=== PATIENT | female | born 1990 | race African-American/Black ===

== ENCOUNTER 2020-02-14 16:22 | Emergency (ER) | payer OTHER, SELFPAY ==
[2020-02-14 17:11] VITALS: RESP 20
[2020-02-14 17:12] VITALS: BP 110/50; PULSE 86; RESP 20; TEMP 36.4; O2SAT 99; BMI 16.6
[2020-02-14] MEDS: chlordiazePOXIDE HCl 25 MG CAPSULE PO (17:31)
[2020-02-14 17:58] LABS: Glucose Urine UA NEG (NEG); Leukocyte Esterase Urine NEG (NEG); Nitrite Urine NEG (NEG); PH 6.5 (5.0-8.0); Specific Gravity - Urine 1.015 (1.005-1.025); Urine Blood 3+ (NEG); Urine Ketones NEG (NEG); Urine Protein NEG (NEG-TRACE)
--- NOTE | 2020-02-14 17:59 | PC.NURSE ---
Methadone dosage verified in report from [facility]. Medication faxed to pharmacy for medication verification. Pharmacy called.
[2020-02-14 18:00] VITALS: RESP 18
[2020-02-14 18:00] LABS: Appearance Urine CLEAR; Color Urine YELLOW
[2020-02-14 18:01] LABS: UPreg QC Valid YES; Urine Pregnancy NEGATIVE (NEGATIVE)
[2020-02-14 18:09] LABS: RBC Urine 50-75 /HPF (0); Squamous Epithelial Cell Urine 1+ /LPF
[2020-02-14 18:23] LABS: Amphetamine Screen Urine Not Detected (Not Detect); Barbiturates, Urine POSITIVE (Not Detect); Benzodiazepines Screen Urine Not Detected (Not Detect); Cannabinoid Screen Urine POSITIVE (Not Detect); Cocaine Screen Urine POSITIVE (Not Detect); Opiate Screen Urine POSITIVE (Not Detect); Phencyclidine Screen Urine Not Detected (Not Detect)
[2020-02-14 18:28] LABS: MANUAL DIFF FLAG NO
--- NOTE | 2020-02-14 18:28 | PC.NURSE ---
Pt eating dinner, conversing with another pt. Affect even. No concerns reported at this time.
[2020-02-14 18:39] LABS: Basophils Percent Auto 0.5 % (0-2); Eosinophils Absolute Auto 0.1 X10*3/uL (0.0-0.4); Eosinophils Percent Auto 0.8 % (0-4); Hematocrit 43.2 % (37-47); Hemoglobin 14.7 g/dl (12.0-16.0); Imm Gran Abs Auto 0.01 X10*3/uL (0.00-0.03); Imm Gran Pct Auto 0.2 % (0.0-0.4); Lymphocytes Absolute Auto 2.7 X10*3/uL (1.2-4.9); Lymphocytes Percent Auto 43.6 % (20-40); Mean Corpuscular Hemoglobin 28.3 pg (27.0-33.0); Mean Corpuscular Volume 83.1 fL (80-98); Mean Platelet Volume 9.7 fL (9.4-12.3); Monocytes Absolute Auto 0.4 X10*3/uL (0.1-1.2); Monocytes Percent Auto 6.1 % (2-11); Neutrophils Absolute Auto 3.1 X10*3/uL (2.0-8.3); Neutrophils Percent Auto 48.8 % (45-73); Platelet Count 211 X10*3/uL (160-400); Red Cell Distribution Width 14.6 % (11.0-16.0); White Blood Count 6.2 X10*3/uL (4.8-10.8)
[2020-02-14 19:02] LABS: Alanine Aminotransferase 14 U/L (0-31); Alkaline Phosphatase 67 U/L (39-117); Anion Gap 15 (12-20); Aspartate Amino Transferase 21 U/L (5-31); Bilirubin Total 0.3 mg/dL (0.0-1.0); Blood Urea Nitrogen 10 mg/dL (9-16); Calcium 8.9 mg/dL (8.4-10.2); Carbon Dioxide 21 mmol/L (22-29); Chloride 107 mmol/L (96-108); Creatinine Clr Calc Pharmacy 74.3; Estimated Glomerular Filt Rate > 60; Glucose Random 75 mg/dL (60-115); Sodium 139 mmol/L (135-145); Total Protein 7.7 g/dL (6.5-8.0)
[2020-02-14 19:16] LABS: Ethanol < 10 mg/dL
--- NOTE | 2020-02-14 19:23 | PC.NURSE ---
Spoke with JENSEN Goddard at [facility] detox. Pt is not on methadone maintenance. Last dose was 20 MG 1436 today per their COWS/taper detox protocol. Pharmacy notified.
--- NOTE | 2020-02-14 20:02 | MHC.CARE ---
CARE Team calls [facility] crisis in order to confirm that they received referral for crisis evaluation. They have placed patient in the list to be seen and a clinician will be out this evening.
[2020-02-14] MEDS: hydrOXYzine HCL 50 MG TABLET PO (20:37)
[2020-02-14 21:02] VITALS: BP 95/50; PULSE 65; RESP 18; TEMP 36.1; O2SAT 99
--- NOTE | 2020-02-14 21:29 | PC.NURSE ---
Pt asking to speak with provider, Donnie notified. Restless, pacing, standing outside [facility]'s door, redirected away. Waiting to be seen by [facility].
--- NOTE | 2020-02-14 21:39 | PC.NURSE ---
ESTELAN meeting with pt at the bedside
--- NOTE | 2020-02-14 22:22 | PC.NURSE ---
Agitated after speaking with PAYROLL TECHNICIAN. Began to wrap sheet up in attempt to hang self. Security and MHT intervened prior to pt acting. Placed on 1:1 at RN discretion, PREETI Fields and sonny [place] RN notified. Attempted to remove sheets from room. If you take the sheets, I'm just going to do it with my marlee . PAYROLL TECHNICIAN in to speak with pt about medications, able to settle. Pt currently laying in bed, calm. Per [facility], pt is a section 12 bed search.
--- NOTE | 2020-02-14 22:28 | MHC.CARE ---
Per Bud from [facility] crisis, pt will be held on a section 12 for inpt bedsearch.
--- NOTE | 2020-02-14 22:31 | PC.NURSE ---
Seroquel 100 MG PO QHS verified by [facility] pharmacy ([phone]), last filled in August for #30
--- NOTE | 2020-02-14 22:52 | PC.NURSE ---
Pt asleep at current, no signs of distress, respirations even and unlabored.
--- NOTE | 2020-02-14 23:38 | PC.NURSE ---
Report received. PT is sleeping in bed. Breathing is even and unlabored. PT is inpatient bed search.
[2020-02-15 00:30] VITALS: RESP 17
--- NOTE | 2020-02-15 02:06 | ED.PSYCH ---
HPI - Psych General Chief Complaint: Psychiatric Symptoms Stated Complaint: crisis Time Seen by Provider: 02/14/20 17:23 Source: EMS Mode of arrival: EMS Limitations: no limitations History of Present Illness HPI Narrative: Presenting via EMS from [facility] where she has been present for detox for past 2 and half days for alcohol and opiates At the detox center she complaint of suicidal ideation with plan to overdose on illicit drugs MD complaint: suicidal ideation and feels depressed If self harm: admits thoughts of self harm and has plan (Overdose) Related Data Home Medications Medication Instructions Recorded Confirmed Seroquel 100 mg PO BEDTIME 02/14/20 02/14/20 acetaminophen [Tylenol] 650 mg PO Q4H PRN 02/14/20 02/14/20 benzocaine-menthol 1 mich PO Q2H PRN 02/14/20 02/14/20 clonidine HCl 0.1 mg PO TID PRN 02/14/20 02/14/20 guaifenesin [Tussin] 200 mg PO Q4H PRN 02/14/20 02/14/20 hydroxyzine pamoate [Vistaril] 25 mg PO Q6H PRN 02/14/20 02/14/20 loperamide 2 mg PO Q6H PRN 02/14/20 02/14/20 methocarbamol 750 mg PO Q8H PRN 02/14/20 02/14/20 multivitamin with iron-mineral 1 tab PO DAILY 02/14/20 02/14/20 naloxone 4 mg INTRANASAL Q3M PRN 02/14/20 02/14/20 nicotine 1 patch TRANSDERMAL DAILY 02/14/20 02/14/20 ondansetron HCl [Zofran] 4 mg PO Q6H PRN 02/14/20 02/14/20 trazodone 50 mg PO BEDTIME PRN 02/14/20 02/14/20 Allergies Allergy/AdvReac Type Severity Reaction Status Date / Time No Known Allergies Allergy Verified 02/14/20 17:23 Review of Systems Review of Systems: Constitutional: No Weight loss, No Fever, No Chills, No Night Sweats, No Fatigue, No Malaise ENT/Mouth: No Hearing loss, No Ear Pain, No Nasal Congestion, No Sinus Pain, No Hoarseness, No sore throat, No Rhinorrhea, No Swallowing Difficulty Eyes: No Eye Pain, No Swelling, No Redness, No Foreign Body, No Discharge, No Vision Changes Cardiovascular: No Chest Pain, No SOB, No Dyspnea on Exertion, No Orthopnea, No Edema, No Palpitations Respiratory: No Cough, No Sputum, No Wheezing, No Smoke Exposure, No Dyspnea Gastrointestinal: No Nausea, No Vomiting, No Diarrhea, No Constipation, No abdominal Pain, No Hematochezia, No Melena Genitourinary: no irregular bleeding, No Dysuria, No Urinary Frequency, No Hematuria, No Urinary Incontinence, No Urgency, No Flank Pain Musculoskeletal: No joint pain, No Myalgias, No Joint Swelling Skin: No Skin Lesions, No rash Neuro: No Weakness, No Numbness, No Paresthesias, No Loss of Consciousness, No Dizziness, No Headache Psych: as noted in HPI Heme/Lymph: No Bruising, No Bleeding,No Lymphadenopathy Endocrine: No Polyuria, No Polydipsia, No Temperature Intolerance Yes all other systems are reviewed and are negative [facility] Past Medical History Medical History (Updated 02/15/20 @ 02:08 by Donnie Terry NP) No known health problems Social History Social History Smoking Status: Unknown if ever smoked Substance Use Type: Crack/Cocaine and Heroin Substance Use Frequency: Chronic Longstanding Advance Directives: No Advance Directives Information Provided: No Physical Exam Vital Signs: Vital Signs: Last Vital Signs Temp 97 F 02/14/20 21:02 Pulse 65 02/14/20 21:02 Resp 17 02/15/20 00:30 BP 95/50 L 02/14/20 21:02 Pulse Ox 99 02/14/20 21:02 Body Mass Index 16.6 Reviewed Const: General: cooperative and healthy appearing; No acute distress or intoxicated appearing Nutritional Appearance: average body habitus Orientation/consciousness: patient oriented x3 HENMT: Head: Yes normal to inspection Ears: hearing grossly normal bilaterally Eyes: General: appearance normal, both eyes and all related structures Visual Marshall: normal visual marshall by confrontation Neck: Neck: Yes normal visual inspection, No positive Brudzinski's sign, No positive Kernig's sign and No tender Thyroid: Thyroid normal Chest: Chest palpation & inspection: normal inspection of the chest Resp: Effort & Inspection: normal respiratory effort Auscultation: clear to auscultation bilaterally Cardio: Jugular venous distension: no JVD Rhythm: regular rhythm Heart sounds: S1 normal heart sound present and S2 normal heart sound present GI: Inspection: Yes normal to inspection Percussion: Yes normal to percussion Auscultation: normal bowel sounds : General: Yes no CVA tenderness Back/Spine/Pelvis: Back: no CVA tenderness Skin: General skin exam: no rashes or lesions noted Neuro: General: patient oriented x3 Extrem: General: Yes normal to inspection Course Course Course Narrative: Interview 30-year-old female presenting with complaint of suicidal ideation from detox center. Will need medical clearance for crisis evaluation. Consultations Consultation #1: [id number] Evaluate by the crisis team recommendation for inpatient level care. Section 12 completed and signed by me. Bed search initiated. MDM - Psych Restraints Face to Face Assessment: Face to Face Assessment: Current Situation: After assessment of the patient, a review of the pertinent medical record and a discussion with nursing staff, I feel the patient requires a restrain intervention. Reaction To: [] Medical Condition: [] Behavioral State: [] Continued Need: [] Lab Data Result diagrams: 02/14/20 18:17 02/14/20 18:17 Labs: Lab Results 02/14/20 02/14/20 02/14/20 Range/Units 17:46 17:46 18:17 WBC 6.2 (4.8-10.8) X10*3/uL RBC 5.20 (4.20-5.50) X10*6/uL Hgb 14.7 (12.0-16.0) g/dl Hct 43.2 (37-47) % MCV 83.1 (80-98) fL MCH 28.3 (27.0-33.0) pg MCHC 34.0 (31.0-35.0) g/dl RDW 14.6 (11.0-16.0) % Plt Count 211 (160-400) X10*3/uL MPV 9.7 (9.4-12.3) fL Immature Gran % (Auto) 0.2 (0.0-0.4) % Neut % (Auto) 48.8 (45-73) % Lymph % (Auto) 43.6 H (20-40) % Potter % (Auto) 6.1 (2-11) % Eos % (Auto) 0.8 (0-4) % Baso % (Auto) 0.5 (0-2) % Lymph # (Auto) 2.7 (1.2-4.9) X10*3/uL Potter # (Auto) 0.4 (0.1-1.2) X10*3/uL Eos # (Auto) 0.1 (0.0-0.4) X10*3/uL Baso # (Auto) 0.0 (0.0-0.2) X10*3/uL Abs Immat Gran (auto) 0.01 (0.00-0.03) X10*3/uL Absolute Neuts (auto) 3.1 (2.0-8.3) X10*3/uL Absolute Nucleated RBC 0.000 (0.0-0.012) X10*3/uL Nucleated RBC % (auto) 0.0 (0.0-0.2) /100WBC Sodium (135-145) mmol/L Potassium (3.3-5.1) mmol/l Chloride (96-108) mmol/L Carbon Dioxide (22-29) mmol/L Anion Gap (12-20) BUN (9-16) mg/dL Creatinine (0.5-1.4) mg/dL Estim Creat Clear Calc Estimated GFR Random Glucose (60-115) mg/dL Calcium (8.4-10.2) mg/dL Total Bilirubin (0.0-1.0) mg/dL AST (5-31) U/L ALT (0-31) U/L Alkaline Phosphatase (39-117) U/L Total Protein (6.5-8.0) g/dL Albumin (3.5-5.0) g/dL Urine Color YELLOW Urine Appearance CLEAR Urine pH 6.5 (5.0-8.0) Ur Specific [place] 1.015 (1.005-1.025) Urine Protein NEG (NEG-TRACE) MG/DL Urine Glucose (UA) NEG (NEG) MG/DL Urine Ketones NEG (NEG) MG/DL Urine Blood 3+ H (NEG) Urine Nitrite NEG (NEG) Ur Leukocyte Esterase NEG (NEG) Urine RBC 50-75 H (0) /HPF Urine WBC 1-4 (0-4) /HPF Ur Squamous Epith Cells 1+ /LPF Urine Bacteria NONE /LPF Urine Test NEGATIVE (NEGATIVE) Urine Opiates Screen POSITIVE H (Not Detect) Ur Barbiturates Screen POSITIVE H (Not Detect) Ur Phencyclidine Scrn Not Detected (Not Detect) Ur Amphetamines Screen Not Detected (Not Detect) U Benzodiazepines Scrn Not Detected (Not Detect) Urine Cocaine Screen POSITIVE H (Not Detect) U Marijuana (THC) Screen POSITIVE H (Not Detect) Ethyl Alcohol mg/dL 02/14/20 02/14/20 Range/Units 18:17 18:17 WBC (4.8-10.8) X10*3/uL RBC (4.20-5.50) X10*6/uL Hgb (12.0-16.0) g/dl Hct (37-47) % MCV (80-98) fL MCH (27.0-33.0) pg MCHC (31.0-35.0) g/dl RDW (11.0-16.0) % Plt Count (160-400) X10*3/uL MPV (9.4-12.3) fL Immature Gran % (Auto) (0.0-0.4) % Neut % (Auto) (45-73) % Lymph % (Auto) (20-40) % Potter % (Auto) (2-11) % Eos % (Auto) (0-4) % Baso % (Auto) (0-2) % Lymph # (Auto) (1.2-4.9) X10*3/uL Potter # (Auto) (0.1-1.2) X10*3/uL Eos # (Auto) (0.0-0.4) X10*3/uL Baso # (Auto) (0.0-0.2) X10*3/uL Abs Immat Gran (auto) (0.00-0.03) X10*3/uL Absolute Neuts (auto) (2.0-8.3) X10*3/uL Absolute Nucleated RBC (0.0-0.012) X10*3/uL Nucleated RBC % (auto) (0.0-0.2) /100WBC Sodium 139 (135-145) mmol/L Potassium 4.0 (3.3-5.1) mmol/l Chloride 107 (96-108) mmol/L Carbon Dioxide 21 L (22-29) mmol/L Anion Gap 15 (12-20) BUN 10 (9-16) mg/dL Creatinine 0.80 (0.5-1.4) mg/dL Estim Creat Clear Calc 74.3 Estimated GFR > 60 Random Glucose 75 (60-115) mg/dL Calcium 8.9 (8.4-10.2) mg/dL Total Bilirubin 0.3 (0.0-1.0) mg/dL AST 21 (5-31) U/L ALT 14 (0-31) U/L Alkaline Phosphatase 67 (39-117) U/L Total Protein 7.7 (6.5-8.0) g/dL Albumin 4.0 (3.5-5.0) g/dL Urine Color Urine Appearance Urine pH (5.0-8.0) Ur Specific [place] (1.005-1.025) Urine Protein (NEG-TRACE) MG/DL Urine Glucose (UA) (NEG) MG/DL Urine Ketones (NEG) MG/DL Urine Blood (NEG) Urine Nitrite (NEG) Ur Leukocyte Esterase (NEG) Urine RBC (0) /HPF Urine WBC (0-4) /HPF Ur Squamous Epith Cells /LPF Urine Bacteria /LPF Urine Test (NEGATIVE) Urine Opiates Screen (Not Detect) Ur Barbiturates Screen (Not Detect) Ur Phencyclidine Scrn (Not Detect) Ur Amphetamines Screen (Not Detect) U Benzodiazepines Scrn (Not Detect) Urine Cocaine Screen (Not Detect) U Marijuana (THC) Screen (Not Detect) Ethyl Alcohol < 10 mg/dL Discharge Plan Discharge Clinical Impression: Depression, Acute anxiety Prescriptions: No Action clonidine HCl 0.1 mg Tablet 0.1 mg PO TID PRN (Reason: Withdrawal Symptoms) RF: 0 acetaminophen [Tylenol] 325 mg Tablet 650 mg PO Q4H PRN (Reason: Pain (Scale Score 1-3)) RF: 0 loperamide 2 mg Capsule 2 mg PO Q6H PRN (Reason: Diarrhea) RF: 0 trazodone 50 mg Tablet 50 mg PO BEDTIME PRN (Reason: Sleep) RF: 0 ondansetron HCl [Zofran] 4 mg Tablet 4 mg PO Q6H PRN (Reason: Nausea And Vomiting) RF: 0 guaifenesin [Tussin] 100 mg/5 mL Liquid 200 mg PO Q4H PRN (Reason: Cough) RF: 0 methocarbamol 750 mg Tablet 750 mg PO Q8H PRN (Reason: Muscle Spasm) RF: 0 nicotine 21 mg/24 hr Patch 24 Hour 1 patch TRANSDERMAL DAILY RF: 0 hydroxyzine pamoate [Vistaril] 25 mg Capsule 25 mg PO Q6H PRN (Reason: Anxiety) RF: 0 multivitamin with iron-mineral Tablet 1 tab PO DAILY RF: 0 benzocaine-menthol Lozenge 1 mich PO Q2H PRN (Reason: Sore Throat) RF: 0 naloxone 4 mg/actuation [place],Non-Aerosol 4 mg INTRANASAL Q3M PRN (Reason: Opioid Overdose) RF: 0 Seroquel 100 MG 100 mg PO BEDTIME RF: 0
--- NOTE | 2020-02-15 02:26 | PC.NURSE ---
PT woke up and asked for a menstrual pad. Calm and cooperative. No other complaints at this time.
--- NOTE | 2020-02-15 03:27 | PC.NURSE ---
PT came to the nurse's station with complaints of nausea and body aches. PT is detoxing from alcohol and opiates. Provider notified.
[2020-02-15 03:31] VITALS: BP 93/49; PULSE 64
[2020-02-15] MEDS: chlordiazePOXIDE HCl 25 MG CAPSULE PO ×2 (03:31→11:54)
[2020-02-15] MEDS: cloNIDine HCL 0.1 MG TABLET PO (03:31)
[2020-02-15] MEDS: QUEtiapine Fumarate 50 MG TABLET 100 MG PO (03:37)
--- NOTE | 2020-02-15 07:10 | PC.NURSE ---
Report received. PT currently sleeping, respirations even and unlabored, in no apparent distress. Pt is inpatient bedsearch.
[2020-02-15 10:02] VITALS: RESP 20
[2020-02-15] MEDS: chlordiazePOXIDE HCl 25 MG CAPSULE 50 MG PO (14:32)
--- NOTE | 2020-02-15 15:24 | PC.NURSE ---
Pt currently on the phone, reported some anxiety, denied other complaints. PT is inpatient bedsearch.
[2020-02-15] MEDS: Cyclobenzaprine HCl 10 MG TABLET PO (16:03)
--- NOTE | 2020-02-15 16:08 | PC.NURSE ---
Pt requested that her EBT card be sent home with her sister, pt signed belonging list, EBT card brought to security to give to Pt sister Petra
[2020-02-15 17:52] VITALS: BP 122/107; RESP 16
[2020-02-15] MEDS: LORazepam 1 MG TABLET 2 MG PO (18:27)
--- NOTE | 2020-02-15 19:24 | PC.NURSE ---
Report received. PT is sitting watching TV. Calm and cooperative. Complaints of restless legs at this time. PT is inpatient bed search.
[2020-02-15] MEDS: Gabapentin 100 MG CAPSULE PO (20:12)
[2020-02-15] MEDS: QUEtiapine Fumarate 100 MG TABLET PO (20:12)
--- NOTE | 2020-02-15 21:55 | PC.NURSE ---
While PT was receiving her night time medications, she asked if she could take another dose of librium because she felt crappy . This nurse told the PT that it had to be discussed first with the provider. This nurse reported to the provider that the PT was not exhibiting any signs of withdrawal at this time. No nausea, tremors, sweating, chills, or anxiety were reported at this time. Plan was to continue to monitor for signs of withdrawal. This nurse came back to the PT's room to find her sleeping soundly.
[2020-02-15 23:50] VITALS: RESP 17
--- NOTE | 2020-02-16 06:14 | PC.NURSE ---
PT slept through the entire night.
[2020-02-16 06:20] VITALS: RESP 17
--- NOTE | 2020-02-16 06:54 | PC.NURSE ---
Report received. PT currently sleeping, respirations even and unlabored, in no apparent distress. Pt is inpatient bedsearch.
[2020-02-16] MEDS: Nicotine 21 MG PATCH.TD24 TRANSDERMA (09:24)
[2020-02-16] MEDS: Gabapentin 100 MG CAPSULE PO ×2 (09:40→13:08)
--- NOTE | 2020-02-16 09:42 | PC.NURSE ---
PT agitated, requesting to speak with the provider, provider aware. PT stating that she has high anxiety and the medications aren't working. Pt given gabapentin per her request for restless legs. Pt states you're a fucking bitch, you're the only one who isn't helping me
[2020-02-16] MEDS: LORazepam 1 MG TABLET PO ×2 (10:53→15:24)
[2020-02-16 12:13] VITALS: BP 121/65; PULSE 79; RESP 18
--- NOTE | 2020-02-16 13:46 | PC.NURSE ---
Late Entry: Pt refused offered methadone, states she is worried about having to come off of it again, explained that she could be assisted to find outpatient provider for MAT, pt declined at this time, states that she just wants gabapentin for her restless legs, provider aware.
--- NOTE | 2020-02-16 14:58 | PC.NURSE ---
Pt currently speaking with a peer, irritable, asking to leave. Plan of care explained. Pt asking to be reassessed by FRANKLYN, states she isn't suicidal, states she was only suicidal in the context of feeling the detox symptoms. Explained that N saw her this morning but did not change her disposition, pt asking if a different clinician can see her.
[2020-02-16] MEDS: HaloperidoL 5 MG TABLET PO (18:08)
[2020-02-16] MEDS: LORazepam 1 MG TABLET 2 MG PO (18:08)
--- NOTE | 2020-02-16 19:15 | PC.NURSE ---
PATIENT WAS GIVEN DINNER TRAY AND TOLD THIS TECH SHE DID NOT WANT IT. THIS TECH THEN PUT THE TRAY BACK ON THE CART AND THE PATIENT TRIED TO TAKE THE TRAY AND GIVE IT TO ANOTHER PATIENT IN THE POD. THIS TECH STATED TO PATIENT THAT WAS NOT APPROPRIATE TO DO AND TO SHARE WITH OTHER PATIENTS WITH COVID BEING A THING. PATIENT BECAME VERY HOSTILE TOWRDS THIS TECH AND THIS TECH WALKED AWAY.
--- NOTE | 2020-02-16 19:37 | PC.NURSE ---
Report received. PT is taking a shower. Calm and cooperative. PT is inpatient bed search.
--- NOTE | 2020-02-16 21:11 | PC.NURSE ---
PT asking for klonopin for anxiety. MAR has 2 mg klonopin that was not given and discontinued for reasons unknown to this nurse. Provider made aware.
[2020-02-16] MEDS: QUEtiapine Fumarate 100 MG TABLET PO (21:39)
--- NOTE | 2020-02-16 21:42 | PC.NURSE ---
PT exhibiting suspicious behavior in her room on camera. This nurse went in the room to inspect and immediately sensed the odor of cigarette smoke. This nurse asked the PT what she doing and she said, smoking a cigarette . This nurse confiscated a lit cigarette and manager metal from the PT and asked where she got the cigarette. PT would not answer this question.
[2020-02-17] VITALS (10 sets, daily range): BP systolic 93–135; BP diastolic 47–74; PULSE 18–125; RESP 16–20; TEMP 36.8–37.2; O2SAT 97–99
--- NOTE | 2020-02-17 07:20 | PC.NURSE ---
Report received from JENSEN Davalos. Pt resting, resp unlabored.
--- NOTE | 2020-02-17 09:41 | PC.NURSE ---
Pt resting, resp unlabored.
[2020-02-17] MEDS: Nicotine 21 MG PATCH.TD24 TRANSDERMA (09:56)
[2020-02-17] MEDS: LORazepam 1 MG TABLET 2 MG PO (10:37)
--- NOTE | 2020-02-17 10:42 | PC.NURSE ---
Pt reporting 10/10 anxiety- pt medicated for anxiety as requested. Pt also reminded of personal boundaries, that there is a no touch policy in the pod.
--- NOTE | 2020-02-17 11:06 | PC.NURSE ---
Pt medicated for reported 10/10 anxiety. Pt affect angry pt declining to wear a mask or be tested for covid per admission protocol.
[2020-02-17] MEDS: cloNIDine HCL 0.1 MG TABLET PO ×2 (11:54→20:22)
--- NOTE | 2020-02-17 12:39 | PC.NURSE ---
Late entry: Pt requesting to see provider. Pt requesting medication for pain, declined tylenol and ibuprofen as well as flexeril. Pt requesting gabapentin. provider aware.
--- NOTE | 2020-02-17 13:10 | PC.NURSE ---
Pt continues to pace. Per another pt, pt has been trying to get her to request clonopin and give it to her. Pt continues to be monitored.
[2020-02-17] MEDS: QUEtiapine Fumarate 25 MG TABLET PO (14:07)
--- NOTE | 2020-02-17 14:28 | PC.NURSE ---
Late entry: pt continues to report pain, declining all options available to her, also reporting significant anxiety, equesting IM injection of Ativa. Elied w/ A,CLARA Uriarte. Pt given seroquel as ordered. [facility]5 called, are aware of psych consult. Pt aware consult has been ordered.
--- NOTE | 2020-02-17 15:44 | PC.NURSE ---
Pt continues to report feeling uncomfortable, and anxious. States she wants a shot of Ativan.' provider notified. Appears to be some effect from seroquel.
[2020-02-17] MEDS: QUEtiapine Fumarate 50 MG TABLET PO (15:56)
[2020-02-17] MEDS: LORazepam 1 MG TABLET PO ×2 (15:56→20:22)
--- NOTE | 2020-02-17 16:11 | PC.NURSE ---
Pt threatening to 'fliup out.' states she wants to be 'sedated.' states medications are not not helping so far. Provider contacted. Lyndsey Mir contacted re: consult.
[2020-02-17] MEDS: Cyclobenzaprine HCl 10 MG TABLET PO (16:41)
--- NOTE | 2020-02-17 16:51 | PC.NURSE ---
Pt continuing to report back pain. Medicated w/ flexeril for back pain.
--- NOTE | 2020-02-17 17:01 | PC.NURSE ---
Pt appears less agitated, affect even. Pt eating snacks.
--- NOTE | 2020-02-17 18:36 | PC.NURSE ---
Pt very angry that she has not been re-evaluated. CARE team aware. [facility] called earlier but unable to commit to a time.
[2020-02-17] MEDS: traZODone HCL 50 MG TABLET PO (20:23)
[2020-02-17] MEDS: QUEtiapine Fumarate 100 MG TABLET PO (20:23)
[2020-02-17] MEDS: QUEtiapine Fumarate 25 MG TABLET 12.5 MG PO (20:23)
--- NOTE | 2020-02-17 21:43 | PC.NURSE ---
Patient loud/disruptive/intrusive/threatening to disrupt whole POD if she doesn't get sedated with IM medication. Security made aware.
[2020-02-18] MEDS: traZODone HCL 50 MG TABLET PO (01:14)
[2020-02-18] MEDS: Melatonin 3 MG TABLET 6 MG PO (01:15)
--- NOTE | 2020-02-18 01:18 | PC.NURSE ---
Provider saw the patient, patient was loud with provider, ordered one time Trazodone 50 mg and Melatonin 6 mg/ administered as ordered, patient demanding discharge, care team sat with patient/d/t recent suicidality provider doesn't want to discharge patient without [facility] revaluation. Patient her room, will continue to monitor.
--- NOTE | 2020-02-18 01:27 | MHC.CARE ---
Earlier in evening, this job specification writer contacted [facility] water and sewer systems supervisor re: pt that has been in ED since Monday night, with initial evaluation on Monday morning, and has not been seen by a clinician for an MSU today. This job specification writer reviewed pt's evaluation with the water and sewer systems supervisor, identifying ongoing concerns re: safety being pt's lack of stable housing and outpatient supports, and determined that an MSU is necessary to discuss possible change in disposition. [facility] water and [facility] systems supervisor reported that a clinician will hopefully see pt on the overnight, but possibly not until the morning. When a [facility] clinician arrived to evaluate another pt, it was reported that the pt will not be seen until the morning. Pt was escalated, yelling, and arguing with ED provider and staff in pod re: medications and being held in the ED all weekend without being re-evaluated by crisis team. This job specification writer met with pt in her room to discuss the events that led to her being brought to the ED and what she is seeking with regards to treatment. Pt reported that the statements that she made at [facility] prior to arrival were in an attempt to get herself into a dual diagnosis or EATS facility. Pt stated that she wants to get back on her psychiatric medications and into recovery. Pt shared that she was previously engaged with providers through [facility], however when she relapsed 4 months ago pt stopped taking her medications and attending therapy. Pt denied experiencing active suicidal ideation, rather that she has been feeling hopeless and desperate. Pt identified that the last time that she felt like she wanted to or harm herself was a month ago when she was reflecting on how she has continued to struggle while the rest of her family has their lives together. Pt continues to state that she wants to leave and go back to her sister's home, however is also help seeking despite her (reasonable) frustration with being held in the ED pod all weekend without re-assessment or an update on status of pt's bedsearch. This job specification writer spoke with ED physician re: pt's situation and the conversation had with pt. In terms of liability, ED physician would be more comfortable with the [facility] crisis team managing disposition and/or discharge planning. This job specification writer followed up with [facility] re: availability of clinician to complete MSU with pt this evening. A clinician continues to not be available tonight and reported that pt will be seen in the morning. This information was relayed to pt.
[2020-02-18 03:30] VITALS: RESP 17
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
[2020-02-18 03:45] VITALS: RESP 17
[2020-02-18 04:00] VITALS: RESP 16
[2020-02-18 04:15] VITALS: RESP 18
[2020-02-18 04:30] VITALS: RESP 16
[2020-02-18 04:45] VITALS: RESP 16
--- NOTE | 2020-02-18 07:19 | PC.NURSE ---
Report received from JENSEN Mendoza. Pt resting, resp unlabored.
--- NOTE | 2020-02-18 09:31 | PC.NURSE ---
Attempted x2 to wake pt and obtain vitals, pt now awake. Vitals reported to Dr Hylton. No concerns reported by pt. Pt given discharge instructions, verbalized understanding.
--- NOTE | 2020-02-18 09:33 | PC.NURSE ---
Pt declined am medications.
--- NOTE | 2020-02-18 09:46 | PC.NURSE ---
Pt discharged with all her belongings. Pt declined all am medications.
== END 2020-02-18 09:58 | disposition home or self-care (01) ==
PROVIDERS: Nurse Practitioner Primary Care; Emergency Provider Emergency Medicine Emergency Medical Services
DX: F33.1 Major depressive disorder, recurrent, moderate (principal); R45.851 Suicidal ideations; F41.1 Generalized anxiety disorder; F43.0 Acute stress reaction; F11.10 Opioid abuse, uncomplicated; F14.10 Cocaine abuse, uncomplicated; Z79.899 Other long term (current) drug therapy; Z71.51 Drug abuse counseling and surveillance of drug abuser; Z20.828 Contact with and (suspected) exposure to other viral communicable diseases
CPT/HCPCS: 36415; 80053; 80307; 80320; 81001; 81025; 85025; 99285

== ENCOUNTER 2024-02-06 03:10 | Emergency (ER) | payer OTHER, SELFPAY ==
[2024-02-06 03:18] VITALS: BP 102/72; BP 104/68; PULSE 104; PULSE 98; RESP 18; TEMP 36.4; O2SAT 100; O2SAT 98; BMI 23.0
[2024-02-06 03:22] VITALS: BP 104/68; PULSE 98; RESP 18; TEMP 36.4; O2SAT 98
[2024-02-06 04:38] LABS: Alanine Aminotransferase 22 U/L (0-31); Albumin Level 4.8 g/dL (3.5-5.0); Alkaline Phosphatase 70 U/L (39-117); Anion Gap 17 (12-20); Aspartate Amino Transferase 39 U/L (5-31); Bilirubin Direct 0.2 mg/dL (0.0-0.5); Blood Urea Nitrogen 19 mg/dL (9-16); Calcium 9.5 mg/dL (8.4-10.2); Carbon Dioxide 10 mmol/L (22-29); Chloride 110 mmol/L (96-108); Creatinine Clr Calc Pharmacy 51.7; Estimated Glomerular Filt Rate 48; Glucose Random 112 mg/dL (60-115); Potassium 4.4 mmol/L (3.3-5.1); Sodium 133 mmol/L (135-145); Total Protein 9.2 g/dL (6.5-8.0)
[2024-02-06 05:11] LABS: Basophils Percent Auto 0.2 % (0-2); Eosinophils Percent Auto 0.2 % (0-4); Hematocrit 45.1 % (37.0-47.0); Hemoglobin 16.5 g/dl (12.0-16.0); Imm Gran Abs Auto 0.02 X10*3/uL (0.00-0.03); Imm Gran Pct Auto 0.3 % (0.0-0.4); Lymphocytes Absolute Auto 0.6 X10*3/uL (1.2-4.9); Lymphocytes Percent Auto 9.9 % (20-40); Mean Corpuscular HGB Conc 36.6 g/dl (31.0-35.0); Mean Corpuscular Hemoglobin 28.9 pg (27.0-33.0); Mean Corpuscular Volume 79.1 fL (80.0-98.0); Monocytes Absolute Auto 0.2 X10*3/uL (0.1-1.2); Monocytes Percent Auto 3.3 % (2-11); Neutrophils Absolute Auto 5.4 x10*3/uL (2.0-8.3); Neutrophils Percent Auto 86.1 % (45-73); Platelet Count 164 X10*3/uL (160-400); Red Cell Distribution Width 13.2 % (11.0-16.0); White Blood Count 6.3 X10*3/uL (4.8-10.8)
[2024-02-06 05:19] LABS: MANUAL DIFF FLAG NO
[2024-02-06 05:48] VITALS: BP 112/69; PULSE 102; RESP 20; TEMP 36.8; O2SAT 97
--- NOTE | 2024-02-06 06:45 | ED_ITS ---
HPI - General Adult General Chief complaint: Abdominal Pain Stated complaint: ULQ & URQ AB pain n/v Time Seen by Provider: 02/06/24 06:39 Source: patient and EMS Mode of arrival: EMS Limitations: no limitations History of Present Illness ED Provider: Allison Chambers PA-C HPI narrative: Patient is a 33 year old assigned female at with a history of anxiety and depression presenting to the emergency department today with abdominal pain, nausea, vomiting, and diarrhea. Patient states that some of the other individuals she lives with have also been sick with the same symptoms. Patient states that her abdominal pain now has resolved and she has been able to drink while being here. Patient denies any dizziness, lightheadedness, fever, chills, blurry vision, double vision, loss of vision, chest pain, difficulty breathing, shortness of breath, back pain, night sweats, pain with urination, increased urinary frequency, increased urinary urgency, blood in her urine or stool, syncope or a near syncopal episode, recent trauma or falls, bowel incontinence, bladder incontinence, or any other complaints at this time. Relieving factors: none Exacerbating factors: none Associated symptoms: nausea/vomiting Treatments prior to arrival: none Related Data Home Medications ?Medication ?Instructions ?Recorded ?Confirmed Seroquel 150 mg PO BEDTIME 02/14/20 02/06/24 acetaminophen 325 mg tablet 650 mg PO Q4H PRN Pain (Scale 02/14/20 02/14/20 (Tylenol) Score 1-3) benzocaine-menthol lozenges 1 mich PO Q2H PRN Sore Throat 02/14/20 02/14/20 clonidine HCl 0.1 mg tablet 0.1 mg PO TID PRN Withdrawal 02/14/20 02/14/20 Symptoms guaifenesin 100 mg/5 mL oral 200 mg PO Q4H PRN Cough 02/14/20 02/14/20 liquid (Tussin) hydroxyzine pamoate 25 mg capsule 25 mg PO BID PRN Anxiety 02/14/20 02/06/24 (Vistaril) loperamide 2 mg capsule 2 mg PO Q6H PRN Diarrhea 02/14/20 02/14/20 methocarbamol 750 mg tablet 750 mg PO Q8H PRN Muscle Spasm 02/14/20 02/14/20 multivitamin with iron-mineral 1 tab PO DAILY 02/14/20 02/14/20 naloxone 4 mg/actuation nasal spray 4 mg intranasal Q3M PRN Opioid 02/14/20 02/14/20 Overdose nicotine 21 mg/24 hr daily 1 patch transdermal DAILY 02/14/20 02/14/20 transdermal patch ondansetron HCl 4 mg tablet 4 mg PO Q6H PRN Nausea And Vomiting 02/14/20 02/14/20 (Zofran) trazodone 50 mg tablet 50 mg PO BEDTIME PRN Sleep 02/14/20 02/06/24 fluoxetine 10 mg tablet 10 mg PO DAILY 02/06/24 02/06/24 fluoxetine 20 mg tablet 20 mg PO DAILY 02/06/24 02/06/24 quetiapine 25 mg tablet 25 mg PO BID 02/06/24 02/06/24 Previous Rx's ?Medication ?Instructions ?Recorded ondansetron 4 mg disintegrating 4 mg PO Q8H 3 days #9 tabs 02/06/24 tablet Allergies Allergy/AdvReac Type Severity Reaction Status Date / Time No Known Allergies Allergy Verified 02/06/24 03:20 Review of Systems 2 Constitutional: Constitutional: Reports no additional constitutional complaints, Denies chills, Denies fever(s) and Denies night sweats Eyes: Eyes: Reports no additional eye complaints, Denies blurry vision, Denies change in vision, Denies diplopia, Denies eye discharge, Denies loss of vision and Denies eye pain ENT: Denies dizziness Cardiovascular: Cardiovascular: Reports no additional cardiovascular complaints, Denies chest pain, Denies lightheadedness, Denies Loss of Consciousness and Denies dyspnea Respiratory: Respiratory: Reports no additional respiratory complaints and Denies dyspnea Gastrointestinal: Gastrointestinal: Reports no additional gastrointestinal complaints, Reports abdominal pain (now resolved), Denies melena, Denies hematochezia, Reports change in bowel habits, Reports change in stool character, Reports diarrhea, Reports nausea and Reports vomiting Genitourinary: Genitourinary: Denies hematuria, Denies urinary frequency, Denies dysuria, Denies urinary incontinence, Denies urinary hesitancy and Denies urinary urgency Musculoskeletal: Musculoskeletal: Reports no additional musculoskeletal complaints, Denies numbness and Denies tingling Neurologic: Denies dizziness, Denies loss of vision, Denies numbness and Denies tingling Psychiatric: Psychiatric: Reports no additional psychiatric complaints Endocrine: Endocrine: Reports no additional endocrine complaints Hematologic/Lymphatic: Hematologic/Lymphatic: Reports no additional hematologic/lymphatic complaints Allergic/Immunologic: Allergic/Immunologic: Reports no additional allergic/immunologic complaints [facility] Past Medical History Attestation statement: The following information was validated with the patient. Source: old records reviewed and nursing notes reviewed Medical History No known health problems Social History Social History Comment: PT is still anxious Smoked in Last 30 Days: Yes Use of substances other than those prescribed or required for medical reasons: No Substance Use Type: Crack/Cocaine and Heroin Advance Directives: No Advance Directives Information Provided: Yes Patient : No Physical Exam ED Vital Signs: Vital Signs - 24 hr 02/06/24 03:18 02/06/24 03:22 02/06/24 05:48 Temperature 97.5 F 97.5 F 98.2 F Pulse Rate 98 98 102 H Respiratory Rate 18 18 20 Blood Pressure 104/68 104/68 112/69 Pulse Oximetry 98 98 97 Oxygen Delivery Method Room Air Room Air Room Air BMI result Body Mass Index 23.0 Const General: cooperative, no acute distress, alert and awake Nutritional Appearance: well nourished Orientation/consciousness: patient oriented x3 Limitations: no limitations HENMT Head: Yes normal to inspection and Yes atraumatic Ears: hearing grossly normal bilaterally and external ears normal General nose exam: Normal external nose present, no nasal discharge noted and no epistaxis Face and sinus: Yes normal facial exam, No abrasion and No laceration Mouth: Normal oral and palatal mucosa present, no drooling and no muffled voice Eyes General: appearance normal, both eyes and all related structures Periorbital: periorbital findings normal Eyelids: Yes eyelids normal Conjunctivae: conjunctivae normal Pupils: Equal, round and reactive pupils present EOM: EOMs intact bilaterally Neck Neck: Yes normal visual inspection, Yes full ROM and Yes no lymphadenopathy Chest Chest palpation & inspection: normal inspection of the chest Resp Effort & Inspection: normal respiratory effort and able to speak in complete sentences GI Inspection: Yes normal to inspection Neuro General: patient oriented x3 and moves all extremities Cranial nerves: Yes Equal, round and reactive pupils present Cognition (Neuro): normal cognition Extrem General: Yes normal to inspection, Yes full ROM and Yes capillary refill normal Psych Appearance: grossly normal Mental Status: mental status grossly normal Affect: normal affect Attitude: cooperative Thought process: Normal thought process present Thought content: Normal thought content present Insight: Good insight present (Psych) Medications Administered Generic Name Dose Route Start Last Admin Trade Name Freq PRN Reason Stop Dose Admin Sodium Chloride 1,000 mls @ 999 mls/hr 02/06/24 07:15 02/06/24 07:13 Ns IV 02/06/24 08:15 999 mls/hr .Q1H1M QUINTON Administration Discontinued Medications Generic Name Dose Route Start Last Admin Trade Name Freq PRN Reason Stop Dose Admin Ondansetron HCl 4 mg 02/06/24 07:06 02/06/24 07:52 Ondansetron Hcl 4 Mg/2 Ml Vial IVPUSH 02/06/24 07:07 4 mg ONCE ONE Administration Medical Decision Making Medical Decision Making [facility] Narrative: Patient is a 33 year old assigned female at with a history of anxiety and depression presenting to the emergency department today with abdominal pain, nausea, vomiting, and diarrhea. Patient's physical exam was unremarkable and patient was able to tolerate PO intake without issue. Patient's blood work initially showed a CO of 10 - repeat CMP showed a CO of 18, patient's labs were otherwise unremarkable. I explained my physical exam findings as well as all test results to the patient. I answered all questions asked by the patient. I stressed the importance of the patient taking her medication as directed (either prescribed or as the over the counter packaging recommends). I stressed the importance of the patient following up with her primary care provider. I stressed the importance of the patient returning to the emergency department immediately if her symptoms were to worsen or if she were to develop any dizziness, shortness of breath, difficulty breathing, chest pain, blurry vision, loss of vision, nausea, vomiting, abdominal pain, fever, chills, back pain, or any other complaints. Patient verbalized agreement and understanding with this treatment plan and discharge. Differential Diagnosis Differential Diagnoses: The differential diagnosis associated with the presentation includes Nausea Vomiting Gastroenteritis Admission/Observation Consideration of admission/observation: Escalation of care including admission/observation considered Patient would have been admitted to the hospital had her work up had any findings where hospital admission was appropriate and her clinical presentation warranted hospital admission. Lab Data [facility] Lab Attestation statement: I reviewed the patient's lab results. My interpretation of these results are in the MDM Rationale portion of this note. 02/06/24 05:04 02/06/24 07:33 Labs: Lab Results 02/06/24 02/06/24 02/06/24 Range/Units 04:07 05:04 07:33 WBC 6.3 (4.8-10.8) X10*3/uL RBC 5.70 H (4.20-5.50) X10*6/uL Hgb 16.5 H (12.0-16.0) g/dl Hct 45.1 (37.0-47.0) % MCV 79.1 L (80.0-98.0) fL MCH 28.9 (27.0-33.0) pg MCHC 36.6 H (31.0-35.0) g/dl RDW 13.2 (11.0-16.0) % Plt Count 164 (160-400) X10*3/uL MPV 11.0 (9.4-12.3) fL Immature Gran % (Auto) 0.3 (0.0-0.4) % Neut % (Auto) 86.1 H (45-73) % Lymph % (Auto) 9.9 L (20-40) % [place] % (Auto) 3.3 (2-11) % Eos % (Auto) 0.2 (0-4) % Baso % (Auto) 0.2 (0-2) % Lymph # (Auto) 0.6 L (1.2-4.9) X10*3/uL [place] # (Auto) 0.2 (0.1-1.2) X10*3/uL Eos # (Auto) 0.0 (0.0-0.4) X10*3/uL Baso # (Auto) 0.0 (0.0-0.2) X10*3/uL Abs Immat Gran (auto) 0.02 (0.00-0.03) X10*3/uL Absolute Neuts (auto) 5.4 (2.0-8.3) x10*3/uL Absolute Nucleated RBC 0.000 (0.0-0.012) X10*3/uL Nucleated RBC % (auto) 0.0 (0.0-0.2) /100WBC Sodium 133 L 137 (135-145) mmol/L Potassium 4.4 3.7 (3.3-5.1) mmol/L Chloride 110 H 109 H (96-108) mmol/L Carbon Dioxide 10 L* D 18 L (22-29) mmol/L Anion Gap 17 14 (12-20) BUN 19 H 20 H (9-16) mg/dL Creatinine 1.28 0.96 (0.5-1.4) mg/dL Estim Creat Clear Calc 51.7 68.9 Estimated GFR 48 > 60 Random Glucose 112 108 (60-115) mg/dL Calcium 9.5 D 8.7 D (8.4-10.2) mg/dL Total Bilirubin 1.0 1.2 H (0.0-1.0) mg/dL Direct Bilirubin 0.2 (0.0-0.5) mg/dL AST 39 H 28 (5-31) U/L ALT 22 17 (0-31) U/L Alkaline Phosphatase 70 65 (39-117) U/L Total Protein 9.2 H 8.3 H (6.5-8.0) g/dL Albumin 4.8 4.4 (3.5-5.0) g/dL Independent Historian Clinical information obtained from an independent historian. History obtained from or confirmed by: EMS (EMS provided additional history and confirmed the history provided by the patient.) Tests considered The following testing was considered but not selected: I considered obtaining a CT scan of the abdomen/pelvis however, the patient's current clinical presentation and work up does not warrant this. I discussed this with the patient who verbalized understanding and agreement. Discharge Plan Discharge Clinical Impression: Gastroenteritis, Nausea & vomiting Patient Disposition: Home, Self-Care Instructions: Gastroenteritis (DC), Acute Nausea and Vomiting (ED) Additional Instructions: Follow up with your primary care provider. Return to the emergency department immediately if your symptoms worsen or if you develop any dizziness, shortness of breath, difficulty breathing, chest pain, blurry vision, loss of vision, nausea, vomiting, abdominal pain, fever, chills, back pain, or any other complaints. Prescriptions: New ondansetron 4 mg tablet,disintegrating 4 mg PO Q8H 3 Days Qty: 9 0RF No Action clonidine HCl 0.1 mg Tablet 0.1 mg PO TID PRN (Reason: Withdrawal Symptoms) acetaminophen [Tylenol] 325 mg Tablet 650 mg PO Q4H PRN (Reason: Pain (Scale Score 1-3)) loperamide 2 mg Capsule 2 mg PO Q6H PRN (Reason: Diarrhea) trazodone 50 mg Tablet 50 mg PO BEDTIME PRN (Reason: Sleep) Rx Instructions: TAKE 1 OR 2 TABLETS AT BEDTIME NEEDED ondansetron HCl [Zofran] 4 mg Tablet 4 mg PO Q6H PRN (Reason: Nausea And Vomiting) guaifenesin [Tussin] 100 mg/5 mL Liquid 200 mg PO Q4H PRN (Reason: Cough) methocarbamol 750 mg Tablet 750 mg PO Q8H PRN (Reason: Muscle Spasm) nicotine 21 mg/24 hr Patch 24 Hour 1 patch TRANSDERMAL DAILY hydroxyzine pamoate [Vistaril] 25 mg Capsule 25 mg PO BID PRN (Reason: Anxiety) multivitamin with iron-mineral Tablet 1 tab PO DAILY benzocaine-menthol Lozenge 1 mich PO Q2H PRN (Reason: Sore Throat) naloxone 4 mg/actuation [place],Non-Aerosol 4 mg INTRANASAL Q3M PRN (Reason: Opioid Overdose) Seroquel 100 MG 150 mg PO BEDTIME quetiapine 25 mg Tablet 25 mg PO BID fluoxetine 10 mg Tablet 10 mg PO DAILY fluoxetine 20 mg Tablet 20 mg PO DAILY Referrals: [facility] Family Medicine [Provider Group] (Call to establish and follow up with a primary care provider. If you already have a primary care provider, please follow up with them.) [facility] Primary [facility] [Provider Group] (Call to establish and follow up with a primary care provider. If you already have a primary care provider, please follow up with them.) [facility] Primary [facility] [Provider Group] (Call to establish and follow up with a primary care provider. If you already have a primary care provider, please follow up with them.) Stand Alone Forms: Work/School Release Print Language: Montenegrin
[2024-02-06] MEDS: 0.9 % Sodium Chloride 1,000 ML 999 ML IV (07:13)
[2024-02-06] MEDS: ondansetron HCL 4 MG/2 ML VIAL IVPUSH (07:52)
[2024-02-06 08:02] LABS: Alanine Aminotransferase 17 U/L (0-31); Albumin Level 4.4 g/dL (3.5-5.0); Alkaline Phosphatase 65 U/L (39-117); Anion Gap 14 (12-20); Aspartate Amino Transferase 28 U/L (5-31); Bilirubin Total 1.2 mg/dL (0.0-1.0); Blood Urea Nitrogen 20 mg/dL (9-16); Calcium 8.7 mg/dL (8.4-10.2); Carbon Dioxide 18 mmol/L (22-29); Chloride 109 mmol/L (96-108); Creatinine Clr Calc Pharmacy 68.9; Estimated Glomerular Filt Rate > 60; Glucose Random 108 mg/dL (60-115); Potassium 3.7 mmol/L (3.3-5.1); Sodium 137 mmol/L (135-145); Total Protein 8.3 g/dL (6.5-8.0)
[2024-02-06 08:21] VITALS: BP 106/58; PULSE 110; RESP 18; TEMP 37.3; O2SAT 98
[2024-02-06 08:25] VITALS: BP 106/58; PULSE 110; RESP 18; TEMP 37.3; O2SAT 98
== END 2024-02-06 08:26 | disposition home or self-care (01) ==
PROVIDERS: Physician Assistant Medical; Emergency Provider Emergency Medicine
DX: K52.9 Noninfective gastroenteritis and colitis, unspecified (principal); R10.11 Right upper quadrant pain; R10.2 Pelvic and perineal pain; R11.2 Nausea with vomiting, unspecified; F11.10 Opioid abuse, uncomplicated; Z79.899 Other long term (current) drug therapy
CPT/HCPCS: 36415; 80048; 80053; 80076; 85025; 96361; 96374; 99284; J2405